=== PATIENT | female | born 1980 | race African-American/Black ===

== ENCOUNTER 2018-02-12 17:08 | Emergency (ER) | payer OTHER ==
[~2018-02-12] VITALS: Ht 177.8 cm; Wt 85.7 kg
[~2018-02-12 17:08] MED LIST: RISPERDAL0.25 MG ORAL
--- NOTE | 2018-02-12 17:21 | Emergency Room Report ---
History of Present Illness General Chief Complaint: Behavioral Complaint Source: EMS Present Illness HPI 37-year-old female presents to the emergency department brought by ambulance was called her housing facility. The housing facility was concerned because patient is refusing to shower and has not showered for over one month. They report patient has a history of depression and she is noncompliant with medication. Patient denies symptoms at this time she states she simply does not want to shower she denies SI, HI, delusions, auditory hallucinations, giana , hypomania. Denies drug use. Patient states that she does not want to take her medication because she feels fine now she was previously prescribed Respinol. Patient has no medical complaints at this time. Denies CP, Palpitations, LOC, AMS, dizziness, Changes in Vision, Sensation, paresthesias, or a sudden severe headache. Allergies: Coded Allergies: No Known Allergies (Unverified , 02/12/18) Patient History Past Medical History: see triage record, psych hx - depression Past Surgical History: none Pertinent Family History: none Last Menstrual Period: 12/27/17 Now: No : 2 Para: 2 Nursing Documentation-[facility] Past Medical History: No History, Except For History Of Psychiatric Problem: Yes - DEPRESSION Review of Systems All Other Systems: negative except mentioned in HPI Physical Exam Vital Signs Date Time Temp Pulse Resp B/P (MAP) Pulse Ox O2 Delivery O2 Flow Rate FiO2 02/12/18 16:51 97.7 82 20 116/72 99 Room Air 97.7 Sp02 EP Interpretation: reviewed, normal General Appearance: no apparent distress, alert, GCS 15, non-toxic, other - Disheveled, strong malodor. Head: normocephalic, atraumatic ENT: hearing grossly normal, normal voice Neck: full range of motion Respiratory: lungs clear, normal breath sounds, speaking full sentences Cardiovascular #1: regular rate, rhythm Musculoskeletal: back normal, gait/station normal, normal range of motion, non- tender Neurologic: alert, oriented x3, responsive, motor strength/tone normal, sensory intact, normal gait, speech normal, grossly normal Psychiatric: judgement/insight normal, other - Flat affect. Skin: normal color, no rash, warm/dry, well hydrated Medical Decision Making PA Attestation Dr. amaya is my supervising Physician whom patient management has been discussed with. Diagnostic Impression: Primary Impression: Encounter for medical screening examination ER Course 37-year-old female presents to the emergency department brought by ambulance was called her housing facility. The housing facility was concerned because patient is refusing to shower and has not showered for over one month. They report patient has a history of depression and she is noncompliant with medication. Patient denies symptoms at this time she states she simply does not want to shower she denies SI, HI, delusions, auditory hallucinations, giana , hypomania. Denies drug use. Patient states that she does not want to take her medication because she feels fine now she was previously prescribed Respinol. Patient has no medical complaints at this time. Denies CP, Palpitations, LOC, AMS, dizziness, Changes in Vision, Sensation, paresthesias, or a sudden severe headache. Ddx considered but are not limited to AMS, ETOH, infection, Trauma/Fall, CVA, AL , Psych, homelessness Vital signs: are WNL, pt. is afebrile H&PE are most consistent with Normal limited Physical exam no acute injury or disease noted at this time. pt. is NAD, NON-toxic, able to answer questions appropriately, pt. is oriented, and no signs of trauma or focal neurological deficits. NO emergent psychiatric symptoms. ORDERS: none required at this time, the diagnosis is clinical ED INTERVENTIONS: None required at this time, pt states she did not want to come to the ER. Pt. is stable for close outpatient follow up. DISCHARGE: At this time pt. is stable for d/c to home. Will provide printed patient care instructions, and any necessary prescriptions. Care plan and follow up instructions have been discussed with the patient prior to discharge. Last Vital Signs Date Time Temp Pulse Resp B/P (MAP) Pulse Ox O2 Delivery O2 Flow Rate FiO2 02/12/18 16:51 97.7 82 20 116/72 99 Room Air 97.7 Disposition: HOME, SELF-CARE Condition: Stable Patient Instructions: Medical Screening Exam, Self-Destructive Behavior Additional Instructions: Take medications as directed. Follow up with a Psychiatrist or Primary Care Provider in 3-5 days, even if your symptoms have resolved. --Please review list of primary care clinics, if you do not already have a primary care provider --Please review [facility] Urgent care information. Return sooner to ED if new symptoms occur, or current symptoms become worse. - Please note that this Emergency Department Report was dictated using [employer] piece checker technology software, occasionally this can lead to erroneous entry secondary to interpretation by the dictation equipment. Zuleyka Estrella Feb 12, 2018 17:21
[2018-02-12 17:22] VITALS: BP 116/72
[2018-02-12 17:39] VITALS: BP 116/72
== END 2018-02-12 17:40 | disposition home or self-care (01) ==
LOC: EDBD 17:08 → EMR 17:20
DX: F32.9 Major depressive disorder, single episode, unspecified (principal)
CPT/HCPCS: 99281